=== PATIENT | female | born 1955 | race Caucasian/White ===

== ENCOUNTER → 2019-03-02 | Outpatient (CLI) | payer OTHER ==
[~2019-03-02] VITALS: Ht 165.1 cm; Wt 92.1 kg
[~2019-03-02] MED LIST: ASPIRIN325 PO; AZATHIOPRINE50 MG PO; COZAAR 25 MG TA25 M1 PO; DILTIAZEM ER180 M2 PO; FISH OIL 1,001000 M2 PO; FLECAINIDE ACET50 M2 PO; LIPITOR40 MG PO; LOSARTAN-HCTZ1 EAC3 PO; SAVAYSA60 MG PO
[2019-03-02 07:02] VITALS: BP 147/86
--- NOTE | 2019-03-02 08:43 | TEE ---
[facility] [address] [place] [address] TRANSESOPHAGEAL ECHOCARDIOGRAM Name: JAMES PERSAUD Room #: REG CL Barney#: [id number] Admission: 03/02/19 Attend Phys: Kun Mason, Discharge: Date of : 53 Report #: [id number] THIS REPORT FOR: //name// APPROVED REPORT Study performed: 03/02/2019 07:40:53 EXAM: Comprehensive GORDON, Doppler, and color-flow Echocardiogram with cardioversion Patient Location: Out-Patient Room #: 9 Status: routine BSA: 1.99 HR: 96 bpm BP: 157/78 mmHg Rhythm: Atrial Fibrillation Other Information Study Quality: Excellent Indications Atrial Fibrillation Echo Enhancing Agent Indication: Rule out Shunt Agent(s) / Amount(s) Used: Agitated Saline 7 cc Procedure After obtaining informed consent, patient underwent transesophageal echo in the [facility]. Type of Sedation : Conscious Sedation Sedation was administered by Nurse. Sedation was achieved intravenously with: Versed (4 mg) Fentanyl (150 mcg) Transesophageal probe was inserted and advanced into esophagus without difficulty by Kun Mason MD. Echo enhancement indication: R/O Septal defect. Echo enhancement agent administered: Agitated Saline The GORDON was performed without complications. Synchronized Cardioversion acheived with 120 Joules after 1 attempt(s). Rhythm following Synchronized Cardioversion: Normal Sinus Rhythm Throughout the procedure, the blood pressure, pulse oximetry, cardiac rhythm, and rate were monitored. The patient tolerated the procedure without adverse effects. Recovery [facility] [address] [place] [address] TRANSESOPHAGEAL ECHOCARDIOGRAM Name: JAMES PERSAUD Room #: REG Des.#: [id number] Admission: 03/02/19 Attend Phys: Kun Mason, Discharge: Date of : 53 Report #: [id number] from conscious sedation was uneventful and vital signs were stable. Left Ventricle The left ventricle is normal size. There is normal LV segmental wall motion. There is normal left ventricular wall thickness. The left ventricular systolic function is normal. The left ventricular ejection fraction is within the normal range. LVEF is 55-60%. Right Ventricle The right ventricle is normal size. The right ventricular systolic function is normal. Atria Left atrium is dilated. No thrombus is visualized in the left atrium or appendage. No shunting by contrast bubble injection The right atrium size is normal. Aortic Valve The aortic valve is normal in structure. No aortic regurgitation is present. There is no aortic valvular stenosis. Mitral Valve The mitral valve is normal in structure. Mild mitral regurgitation. No evidence of mitral valve stenosis. Tricuspid Valve The tricuspid valve is normal in structure. Trace tricuspid regurgitation. Pulmonic Valve The pulmonary valve is normal in structure. There is no pulmonic valvular regurgitation. Great Vessels The aortic root is normal in size. The ascending aorta is normal in size. IVC is normal in size and collapses >50% with inspiration. Pericardium There is no pericardial effusion. <Conclusion> The left ventricular systolic function is normal. There is normal LV segmental wall motion. LVEF is 55-60%. [facility] [address] [place] [address] TRANSESOPHAGEAL ECHOCARDIOGRAM Name: JAMES PERSAUD Room #: REG CAMERON QuezadaLeslieKarmenLeslie#: [id number] Admission: 03/02/19 Attend Phys: Kun Mason, Discharge: Date of : 53 Report #: [id number] Left atrium is dilated. No thrombus is visualized in the left atrium or appendage. No shunting by contrast bubble injection The aortic valve is normal in structure. No aortic regurgitation or stenosis. The mitral valve is normal in structure. Mild mitral regurgitation. There is no pericardial effusion. Successful cardioversion of atrial fibrillation to sinus rhythm with a single 120 J biphasic synchronous shock <ELECTRONICALLY SIGNED> By: Kun Mason MD, FACC 03/02/1943 1 1 Kun Mason MD, FACC /INF
--- NOTE | 2019-03-03 09:09 | EKG ---
[place] [address] [facility] [place] [address] ELECTROCARDIOGRAM REPORT Name: JAMES PERSAUD [facility] [id number] Admission: 03/02/19 Attend Phys: Kun Mason MD, Discharge: Date of : 53 Report #: [id number] THIS REPORT FOR: //name// [facility] Test Date: 2019-03-02 Test Time: 08:33:15 Pat Name: JAMES PERSAUD Department: Room: Gender: F Building Supplies Salesperson Retail: Tea JAY : 1955 Requested By: Kun Mason Order Number: [id number] MD: Kun Mason Measurements Intervals [place] Rate: 59 P: 31 CO: 223 QRS: 4 QRSD: 114 T: -7 QT: 480 QTc: 476 Interpretive Statements Sinus rhythm Prolonged CO interval Abnormal R-wave progression, early transition Nonspecific ST and T wave abnormality Compared to ECG 12/12/2014 08:03:37 First degree AV block now present Electronically Signed On 03-03-2019 9:09:12 CDT by Kun Mason [email or web address] <ELECTRONICALLY SIGNED> By: Kun Mason MD, [facility] 03/03/19 0909 0833 Kun Mason MD, [facility] /EPI
== END | disposition home or self-care (01) ==
LOC: CV 06:29 → CATH 11:06 → CV 16:52
DX: I48.91 Unspecified atrial fibrillation (principal); I34.0 Nonrheumatic mitral (valve) insufficiency; I10 Essential (primary) hypertension; E78.5 Hyperlipidemia, unspecified; F32.9 Major depressive disorder, single episode, unspecified; E66.09 Other obesity due to excess calories; Z82.49 Family history of ischemic heart disease and other diseases of the circulatory system; Z79.899 Other long term (current) drug therapy; Z79.01 Long term (current) use of anticoagulants; Z98.890 Other specified postprocedural states

== ENCOUNTER → 2019-04-07 | Outpatient (CLI) | payer OTHER ==
[~2019-04-07] MED LIST changes: +AUGMENTIN 875-1 EACH PO; +CARDIZEM CD240 M1 PO; +METOPROLOL SUCC25 M1 PO; +PRADAXA150 MG PO
[2019-04-07 08:20] LABS: HEMOGLOBIN 13.2 gm/dL (12.0-15.0); MCH 31.4 pg (26.0-34.0); MCHC 32.9 g/dL (28.0-37.0); MCV 95.3 fL (80.0-100.0); RBC 4.2 mil/uL (4.20-5.00); RDW 14.7 % (10.5-14.5); WBC 5.3 thou/uL (4.0-11.0)
[2019-04-07 09:05] LABS: ALBUMIN 3.8 g/dL (3.4-5.0); CALCIUM 9.9 mg/dL (8.5-10.1); CREATININE 1.1 mg/dL (0.6-1.0); POTASSIUM 3.8 mmol/L (3.5-5.1); TOTAL BILIRUBIN 0.9 mg/dL (<0.1-1.0); TOTAL PROTEIN 7.1 g/dL (6.4-8.2)
== END ==
LOC: CAT 07:45
PROVIDERS: Internal Medicine Cardiovascular Disease
DX: I48.91 Unspecified atrial fibrillation (principal); I25.10 Atherosclerotic heart disease of native coronary artery without angina pectoris; J98.4 Other disorders of lung; M47.819 Spondylosis without myelopathy or radiculopathy, site unspecified

== ENCOUNTER 2019-04-11 06:40 | Observation (INO) | payer OTHER ==
[~2019-04-11] VITALS: Ht 162.6 cm; Wt 93.1 kg
[~2019-04-11 06:40] MED LIST changes: -AUGMENTIN 875-1 EACH PO; -CARDIZEM CD240 M1 PO; -METOPROLOL SUCC25 M1 PO; -PRADAXA150 MG PO
[2019-04-11 07:19] VITALS: BP 167/65
[2019-04-11 07:21] LABS: ABSOLUTE NEUTROPHILS 4.3 thou/uL (1.4-8.2); BASOPHILS 1.4 % (0.0-2.0); HEMATOCRIT 42.4 % (37.0-47.0); LYMPHOCYTES 23.3 % (24.0-44.0); MCH 31.6 pg (26.0-34.0); MCHC 33.1 g/dL (28.0-37.0); MCV 95.4 fL (80.0-100.0); MONOCYTES 8.1 % (1.0-8.0); PLATELET COUNT 355 thou/uL (150-400); POLYS 65.2 % (36.0-66.0); RBC 4.44 mil/uL (4.20-5.00); RDW 15.2 % (10.5-14.5); WBC 6.5 thou/uL (4.0-11.0)
[2019-04-11 07:28] LABS: INR 1.5; PROTIME 15.3 Seconds (9.3-11.4)
[2019-04-11 07:29] LABS: CALCIUM 9.7 mg/dL (8.5-10.1); CREATININE 1.3 mg/dL (0.6-1.0); POTASSIUM 3.7 mmol/L (3.5-5.1)
[2019-04-11 07:35] LABS: ALBUMIN 4.2 g/dL (3.4-5.0); TOTAL BILIRUBIN 0.9 mg/dL (<0.1-1.0); TOTAL PROTEIN 8.1 g/dL (6.4-8.2)
[2019-04-11] MEDS ORDERED: PRADAXA150 MG PO (07:37)
--- NOTE | 2019-04-11 16:59 | NUR ---
PT GIVEN 150 MG FLECINIDE PO PER ORDER. UNABLE TO SCAN AND DOCUMENT MEDICATION IN JUL. PT RESTING COMFORTABLY. AAOX4, SPEAKING IN COMPLETE SENTENCE, REMAINS ON BEDREST, SKIN PWD, NO NAD NOTED. AFIB. VSS. UPDATED ON POC. FAMILY AT BEDSIDE. WILL CONTINUE TO MONITOR
--- NOTE | 2019-04-11 18:40 | NUR ---
ASSUMED CARE PT AT APPROX 1800 FROM CATH FROM ABLATION ACCOMPANIED BY SPOUSE. PT ALERT AND ORIENTED, VSS, DENIES PAIN. O2 SATS WNL ON ROOM AIR. RIGHT GROIN SITE CDI, NO HEMATOMA. PT ON BEDREST UNTIL APPROX 1900. HEIN CATH IN PLACE DRAINING APPROPRIATELY. ADMISSION COMPLETE TELEMETRY SHEET SIGNED. TELE PUT ON, SHEET PRINTED AND DOCUMENTED. PT CURRENTLY IN ROOM WITH SPOUSE EATING DINNER DENYING NEEDS/CONCERNS AT THIS TIME. PT PLAN IS FOR POSSIBLE CARDIOVERSION TOMORROW, PT NPO AT MIDNIGHT. WILL CONTINUE TO MONITOR AND FOLLOW POC.
[2019-04-11 18:44] VITALS: BP 135/61
[2019-04-11 20:15] VITALS: BP 104/45
[2019-04-11 23:57] VITALS: BP 125/55
[2019-04-12 04:19] VITALS: BP 99/42
[2019-04-12 05:54] LABS: INR 1.4; PROTIME 14.9 Seconds (9.3-11.4)
--- NOTE | 2019-04-12 06:24 | NUR ---
PT A&O X4 ABLE TO MAKE NEEDS KNOWN. C/O STERNAL PAIN X1 OVERNITE EFFECTIVELY CONTROLLED VIA PRN PAIN MEDS. UP AD RENEA. PT HAD AFIB ABLATION PREVIOUS SHIFT VIA L GROIN SITE INTACT NO EVIDENCE OF BLEEBING. HEIN CATHETER DCD AT HS PT VOIDING OK SINCE THEN. SOFT BP THIS AM. PT HAS BEEN NPO SINCE MIDNITE.
[2019-04-12 08:00] VITALS: BP 101/43
[2019-04-12] MEDS ORDERED: METOPROLOL SUCC25 M1 PO (08:38)
--- NOTE | 2019-04-12 08:47 | EKG ---
[address] [address] ELECTROCARDIOGRAM REPORT Name: JAMES PERSAUD Room #: 216-[facility]..#: [id number] Admission: 04/11/19 Attend Phys: Can Bello MD Discharge: Date of : 53 Report #: [id number] THIS REPORT FOR: //name// [facility] Test Date: 2019-04-12 Test Time: 07:36:40 Pat Name: JAMES PERSAUD Department: Room: 216 Gender: F Defensive Fire Control Systems Operator: SHAINA : 1955 Requested By: Can Bello Order Number: [id number] MD: Kun Mason Measurements Intervals [place] Rate: 95 P: 49 WV: 67 QRS: 42 QRSD: 174 T: 6 QT: 444 QTc: 559 Interpretive Statements Sinus rhythm Atrial premature complexes Early R-wave progression Compared to ECG 03/02/2019 08:33:15 Atrial premature complexes are now present Electronically Signed On 04-12-2019 8:47:39 NEEDLE LEADER by Kun Mason [email or web address] <ELECTRONICALLY SIGNED> By: Kun Mason MD, FAC 04/12/19 0847 0736 0736 Kun Mason MD, [facility] /EPI
[2019-04-12 09:36] VITALS: BP 101/43
--- NOTE | 2019-04-12 17:09 | EKG ---
[address] [place] [address] ELECTROCARDIOGRAM REPORT Name: JAMES PERSAUD Room #: 216-[facility] M.R.#: [id number] Admission: 04/11/19 Attend Phys: Can Bello MD Discharge: 04/12/19 Date of : 53 Report #: [id number] THIS REPORT FOR: //name// [facility] Test Date: 2019-04-12 Test Time: 09:35:19 Pat Name: JAMES PERSAUD Department: Room: [facility] Gender: F Manager News: Tea JAY : 1955 Requested By: Zainab Wright Order Number: [id number] MD: Kun Mason Measurements Intervals [place] Rate: 92 P: 69 SC: 239 QRS: -25 QRSD: 130 T: 86 QT: 396 QTc: 490 Interpretive Statements Sinus rhythm Frequent supraventricular complexes Prolonged SC interval Early R-wave progression Nonspecific T wave abnormality Compared to ECG 04/12/2019 07:36:40 No significant change was found Electronically Signed On 04-12-2019 17:09:09 RIM TECHNICIAN by Kun Mason [email or web address] <ELECTRONICALLY SIGNED> By: Kun Mason MD, [facility] 04/12/19 1709 0935 0935 Kun Mason MD, [facility] /EPI
--- NOTE | 2019-04-18 14:09 | P ---
[facility] [place] [address] PROCEDURE REPORT Name: JAMES PERSAUD Room #: 216-P [facility] MBarbie#: [id number] Admission: 04/11/19 Attend Phys: Can Bello MD Discharge: 04/12/19 Date of : 53 Report #: [id number] THIS REPORT FOR: //name// CC: Can Maharaj DATE OF SERVICE: 04/11/2019 PREOPERATIVE DIAGNOSIS: Atrial fibrillation. POSTOPERATIVE DIAGNOSIS: Atrial fibrillation. HISTORY: The patient is a 64-year-old with history of atrial fibrillation as well as dermatomyositis, who has had recurrent AFib despite antiarrhythmic drug therapy. She is here for ablation. ANESTHESIA: The patient underwent general anesthesia with no anesthesia related complications. PROCEDURES PERFORMED: 1. Atrial fibrillation ablation, CPT code 71824. 2. 3D mapping, CPT code 64485. 3. Intracardiac echo, CPT code 91000. 4. Focal ablation with creation of a posterior wall isolation, CPT code 69854. DESCRIPTION OF PROCEDURE: The patient underwent informed consent. We discussed the details of the procedure including the risks, which include but not limited to bleeding, vascular damage, cardiac perforation as well as stroke or OH. She understood these risks and is willing to proceed. The patient was brought to EP laboratory in fasting and sedated state, prepped and draped in sterile fashion. I obtained access to the right femoral vein x 3, placing an 8, 9 and 7-Azeri short sheath using the modified Seldinger technique. Next, under fluoroscopy, a decapolar catheter was placed into the right atrium. Of note, she did have a very strange anatomy. Getting my decapolar catheter into the atrium was somewhat challenging. I also had difficulties getting my ICE catheter into the right atrium as well as my guidewire for transseptal into the SVC. After spending about 10-15 minutes, I was able to advance my decapolar catheter up into the SVC and then I could get my ICE catheter into a better position and then advance my guidewire into the SVC as well. Next, using intracardiac ultrasound, I created a detailed 3D geometry of the left atrium. Of note, her anatomy was quite rotated. She appeared to have a left common ostium with the left superior and left inferior pulmonary branch. She also had a right superior and right inferior pulmonary vein. She had a large left atrial appendage. Her ultrasound images were merged with the cardiac CT scan and then the patient was systemically heparinized and a [address] [address] PROCEDURE REPORT Name: JAMES PERSAUD Room #: [address] [place] [address] M.R.#: [id number] Admission: 04/11/19 Attend Phys: Can Bello MD Discharge: 04/12/19 Date of : 53 Report #: [id number] transseptal was performed using an SL1 sheath and a Grubbs needle. Of note, at baseline, the patient was in atrial fibrillation with controlled ventricular response. A transseptal was performed using an SL1 sheath and a Grubbs needle and I was able to get my guidewire up into the left superior pulmonary vein. I attempted to advance my SL1 sheath in the left atrium, I could not. I therefore exchanged for the cryo sheath and I could not advance this in the left atrium, either. Therefore, we went back to the SL1 sheath and I used a Powerflex balloon to perform a septoplasty. Balloon was 6 mm x 4 cm. Once we performed the balloon septoplasty, I was able to advance my cryo sheath into the left atrium with ease. Next, via the cryo sheath, I placed a Lasso catheter into the left atrium and created a voltage map of the left atrium. Next, I exchanged for the cryo-balloon and placed this into the left atrium as well. The patient's anatomy was somewhat challenging and it was hard to tell on intracardiac ultrasound, if I was in the left superior or the left inferior pulmonary vein. I finally was able to get into the left superior pulmonary vein and performed two 4-minute freezes and it appeared that the vein had isolated. I then turned my attention to the left inferior pulmonary vein and performed two 4-minute freezes. This vein isolated within 114 seconds of the second freeze. It appeared that with isolation of the left superior pulmonary vein. I had likely isolated most of the left inferior pulmonary vein as they appeared to share common ostium. I then turned my attention to the right superior pulmonary vein. I performed 125 second freeze followed by 130 second freeze. The vein isolated during the first freeze within 14 seconds and I came off early on both freezes of the temperatures were -50 degrees. I then turned my attention to the right inferior pulmonary vein. This vein isolated during the first freeze within 21 seconds. I came off after 90 seconds as there was weakening of the phrenic nerve. We monitored the phrenic nerve and at the end of the case, it had returned to normal function. Posterior wall isolation. Next, using the cryoablation balloon, we performed posterior wall isolation as well. I performed 3 freezes anchored from the left superior pulmonary vein and 3 freezes anchored from the left inferior pulmonary vein. At this point, we had the patient undergo a 200 joule synchronized cardioversion and a voltage map was created. There was wide circumferential ablation of all four pulmonary veins. The posterior wall also appeared isolated as well. Post-ablation, we recheck the phrenic and this appeared to be returning to normal. As such, the procedure was concluded. Of note, the patient did have a very high ACT level. We did not check a preprocedural ACT level, but at baseline, she did have a PTT that was 15 and INR that was 1.5. The initial ACT level was over 700. We recheck this several times and this was not inaccurate. Post-ablation, we did give systemic protamine and after receiving protamine, the ACT was 240. We gave additional protamine and after an hour waiting it was still high at 224. We had pulled catheters and sheaths and I performed a cwobwu-be-uraox suture at the right groin region and there was no significant bleeding post-ablation. Given her known autoimmune disease, it is possible that she has some sort of abnormal PTT and ACT levels at baseline. [facility] [address] [place] [address] PROCEDURE REPORT Name: JAMES PERSAUD Room #: 216-P [facility] Dee M.R.#: [id number] Admission: 04/11/19 Attend Phys: Can Bello MD Discharge: 04/12/19 Date of : 53 Report #: [id number] After we had pulled lines, the patient had gone back into AFib and we performed a second 200 joule cardioversion with roman catholic of sinus rhythm. CONCLUSIONS: 1. Successful AFib ablation with wide circumferential ablation of the pulmonary veins. 2. Successful posterior wall isolation. <ELECTRONICALLY SIGNED> By: Can Bello MD 04/18/19 1409 1407 2133 Can Bello MD /nt
== END 2019-04-12 12:07 | disposition home or self-care (01) ==
LOC: CATH 06:40 → 2N 16:59 → ENTRNSPT 04-12 11:20 → EDTRNSPTSTS 04-12 11:23 → 2N 04-12 12:07
PROVIDERS: ADMIT Internal Medicine Cardiovascular Disease
DX: I48.0 Paroxysmal atrial fibrillation (principal); I10 Essential (primary) hypertension; E78.5 Hyperlipidemia, unspecified; I48.3 Typical atrial flutter; M33.90 Dermatopolymyositis, unspecified, organ involvement unspecified; I25.10 Atherosclerotic heart disease of native coronary artery without angina pectoris; Z79.01 Long term (current) use of anticoagulants; Z79.899 Other long term (current) drug therapy
CPT/HCPCS: 62110; 62900; 65020; 65040; 70005

== ENCOUNTER 2019-04-17 12:17 | Emergency (ER) | payer OTHER ==
[~2019-04-17] VITALS: Ht 162.6 cm; Wt 90.7 kg
[~2019-04-17 12:17] MED LIST changes: +METOPROLOL SUCC25 M1 PO; +PRADAXA150 MG PO
--- NOTE | 2019-04-17 13:01 | EKG ---
[place] [address] [facility] [place] [address] ELECTROCARDIOGRAM REPORT Name: JAMES PERSAUD Room #: [facility] M.R.#: [id number] Admission: Attend Phys: Discharge: Date of : 53 Report #: [id number] THIS REPORT FOR: //name// [facility] ED Test Date: 2019-04-17 Test Time: 12:24:39 Pat Name: JAMES PERSAUD Department: Room: Gender: F Pre Parole Counseling Aide: RD : 1955 Requested By: Kaz Galaviz Order Number: [id number] MD: Kun Mason Measurements Intervals [place] Rate: 140 P: [place]: QRS: 72 QRSD: 71 T: 112 QT: 309 QTc: 472 Interpretive Statements Atrial fibrillation Poor R wave progression Nonspecific ST and T wave abnormality Compared to ECG 04/12/2019 09:35:19 Atrial fibrillation has replaced sinus rhythm Electronically Signed On 04-17-2019 13:01:16 VICTIM WITNESS ADMINISTRATOR by Kun Mason [email or web address] <ELECTRONICALLY SIGNED> By: Kun Mason MD, [facility] 04/17/19 1301 1224 1224 Kun Mason MD, FACC /EPI
[2019-04-17 13:45] LABS: ABSOLUTE NEUTROPHILS 5.5 thou/uL (1.4-8.2); BASOPHILS 0.7 % (0.0-2.0); EOSINOPHILS 1.5 % (0.0-3.0); HEMOGLOBIN 11.1 gm/dL (12.0-15.0); LYMPHOCYTES 7.7 % (24.0-44.0); MCHC 33.8 g/dL (28.0-37.0); MCV 94.8 fL (80.0-100.0); MONOCYTES 8.7 % (1.0-8.0); PLATELET COUNT 261 thou/uL (150-400); POLYS 81.4 % (36.0-66.0); RBC 3.48 mil/uL (4.20-5.00); RDW 14.9 % (10.5-14.5); WBC 6.7 thou/uL (4.0-11.0)
[2019-04-17 13:54] LABS: CALCIUM 9.3 mg/dL (8.5-10.1); POTASSIUM 3.8 mmol/L (3.5-5.1)
[2019-04-17 14:02] LABS: TROPONIN-I 0.31 ng/mL (<0.06)
[2019-04-17] MEDS ORDERED: CARDIZEM CD240 M1 PO (15:26)
[2019-04-17] MEDS ORDERED: AUGMENTIN 875-1 EACH PO (15:26)
[2019-04-17 17:39] VITALS: BP 123/51
== END 2019-04-17 17:40 | disposition home or self-care (01) ==
LOC: ER 12:17
PROVIDERS: Emergency Medicine
DX: I48.20 Chronic atrial fibrillation, unspecified (principal); E78.5 Hyperlipidemia, unspecified; I10 Essential (primary) hypertension; Z79.899 Other long term (current) drug therapy

== ENCOUNTER 2019-04-19 07:29 | Inpatient (IN) | payer OTHER ==
[~2019-04-19] VITALS: Ht 162.6 cm; Wt 94.3 kg
[~2019-04-19 07:29] MED LIST changes: +AUGMENTIN 875-1 EACH PO; +CARDIZEM CD240 M1 PO
[2019-04-19 07:30] VITALS: BP 130/70
[2019-04-19 08:00] LABS: ABSOLUTE NEUTROPHILS 5.8 thou/uL (1.4-8.2); BASOPHILS 0.5 % (0.0-2.0); EOSINOPHILS 0.9 % (0.0-3.0); HEMATOCRIT 33.5 % (37.0-47.0); HEMOGLOBIN 11.2 gm/dL (12.0-15.0); LYMPHOCYTES 12.6 % (24.0-44.0); MCH 31.8 pg (26.0-34.0); MCHC 33.4 g/dL (28.0-37.0); MCV 95.4 fL (80.0-100.0); MONOCYTES 11.3 % (1.0-8.0); PLATELET COUNT 285 thou/uL (150-400); POLYS 74.7 % (36.0-66.0); RBC 3.51 mil/uL (4.20-5.00); RDW 15.4 % (10.5-14.5); WBC 7.8 thou/uL (4.0-11.0)
[2019-04-19 08:07] LABS: CALCIUM 9.5 mg/dL (8.5-10.1); POTASSIUM 3.5 mmol/L (3.5-5.1)
[2019-04-19 08:15] LABS: TROPONIN-I 0.14 ng/mL (<0.06)
--- NOTE | 2019-04-19 08:38 | EKG ---
[address] [place] [address] ELECTROCARDIOGRAM REPORT Name: JAMES PERSAUD [id number] Admission: 04/19/19 Attend Phys: Discharge: Date of : 53 Report #: [id number] THIS REPORT FOR: //name// [facility] ED Test Date: 2019-04-19 Test Time: 07:34:49 Pat Name: JAMES PERSAUD Department: Room: Gender: F Special Officer Automat: ANNE : 1955 Requested By: Tima Camarena Order Number: [id number] MD: Can Bello Measurements Intervals [place] Rate: 118 P: [place]: QRS: 50 QRSD: 110 T: -41 QT: 331 QTc: 464 Interpretive Statements Atrial flutter Low voltage, precordial leads Borderline repolarization abnormality Baseline wander in lead(s) I,III,aVL Compared to ECG 04/17/2019 12:24:39 Electronically Signed On 04-19-2019 8:38:34 FLEXOGRAPHIC PRESS OPERATOR by Can Bello [email or web address] <ELECTRONICALLY SIGNED> By: Can Bello MD 04/19/19 0838 3 3 Can Bello MD /STEPHANIE
[2019-04-19 08:53] VITALS: BP 150/60
[2019-04-19 10:09] VITALS: BP 102/53
[2019-04-19 10:22] VITALS: BP 106/68
--- NOTE | 2019-04-19 11:32 | 2DMMODE ---
[address] [address] D/M-MODE ECHOCARDIOGRAM Name: JAMES PERSAUD Room #: 217-P ADM IN M.R.#: [id number] Admission: 04/19/19 Attend Phys: Juan Ramon Villanueva Discharge: Date of : 53 Report #: [id number] THIS REPORT FOR: //name// APPROVED REPORT Study performed: 04/19/2019 10:56:41 EXAM: Limited 2D Echocardiogram Patient Location: Bedside Room #: [facility] Status: routine BSA: 1.96 HR: 82 bpm BP: 92/57 mmHg Rhythm: Atrial Fibrillation Other Information Study Quality: Adequate Indications Limited follow up echo to rule out pericardial effusion. Chest pain. Status post Afib ablation 04/11/19. Left Ventricle The left ventricle is normal size. There is normal left ventricular wall thickness. Left ventricular systolic function is normal. LVEF is 55%. Right Ventricle The right ventricle is normal size. The right ventricular systolic function is normal. Atria Left atrium is dilated. The right atrium size is normal. Aortic Valve The aortic valve is normal in structure. Mitral Valve The mitral valve is normal in structure. Tricuspid Valve The tricuspid valve is normal in structure. Pericardium There is no pericardial effusion. [address] [address] D/M-MODE ECHOCARDIOGRAM Name: JAMES PERSAUD Room #: 217-P ADM IN M.R.#: [id number] Admission: 04/19/19 Attend Phys: Juan Ramon Villanueva Discharge: Date of : 53 Report #: [id number] <Conclusion> The left ventricle is normal size. LVEF is 55%. Left atrium is dilated. The aortic valve is normal in structure. The mitral valve is normal in structure. The tricuspid valve is normal in structure. There is no pericardial effusion. <ELECTRONICALLY SIGNED> By: Andrew Ramey MD 04/19/19 1132 1132 31 Andrew Ramey MD /INF
[2019-04-19 17:08] VITALS: BP 155/94
--- NOTE | 2019-04-19 19:08 | NUR ---
ASSUMED CARE 1100. ADMISSION FOR ED FOR ELEVATED TROPONIN AND CHEST PAIN. PAIN MANAGED WITH MEDICATIONS. STEADY WALK WITH BATHROOM PRIVLEDGES. ENCOURAGED KEEPING BED ELEVATED FOR PAIN RELIEF. CALLS APPROPRIATLEY. NPO FOR CARDIOVERSION IN THE MORNING.
[2019-04-19 19:53] VITALS: BP 110/63
[2019-04-20 04:06] VITALS: BP 153/94
[2019-04-20 05:37] LABS: CALCIUM 9.2 mg/dL (8.5-10.1); CREATININE 1.3 mg/dL (0.6-1.0); POTASSIUM 3.9 mmol/L (3.5-5.1)
[2019-04-20 05:46] LABS: ABSOLUTE NEUTROPHILS 9.2 thou/uL (1.4-8.2); BASOPHILS 0.2 % (0.0-2.0); HEMATOCRIT 32.4 % (37.0-47.0); HEMOGLOBIN 10.9 gm/dL (12.0-15.0); LYMPHOCYTES 4.1 % (24.0-44.0); MCH 31.9 pg (26.0-34.0); MCHC 33.6 g/dL (28.0-37.0); MCV 94.7 fL (80.0-100.0); MONOCYTES 3.1 % (1.0-8.0); PLATELET COUNT 286 thou/uL (150-400); POLYS 92.6 % (36.0-66.0); RBC 3.42 mil/uL (4.20-5.00); RDW 15.6 % (10.5-14.5)
--- NOTE | 2019-04-20 08:27 | NUR ---
PATIETNS CARES WERE ASSUMED AT SHIFT CHANGE. PATIENT WAS ASSESSED AND MEDS WERE PASSED. SLEEPING PILL WAS GIVEN AND PATIENT SLEPT ALL NIGHT, HOURLY ROUNDS WERE DONE. THE BED IS IN A LOW AND LOCKED POSITION.
[2019-04-20 08:30] VITALS: BP 135/76
[2019-04-20 11:00] VITALS: BP 127/75
[2019-04-20 17:30] VITALS: BP 153/76
--- NOTE | 2019-04-20 17:33 | NUR ---
ASSUMED CARE 0700. ALERT X4, DENIES PAIN, VS WNL. AFIB ON TELE, CONSCENT SIGNED FOR MORNING CARDIOVERSION. UNDERSTANDS SHE WILL BE NPO AFTER MIDNIGHT TONIGHT. STEADY GAIT, UP AB RENEA IN ROOM. CALLS FOR ASSISTANCE.
[2019-04-20 19:20] VITALS: BP 146/90
[2019-04-21 04:36] VITALS: BP 138/68
[2019-04-21 05:12] LABS: CALCIUM 8.9 mg/dL (8.5-10.1); CREATININE 1.1 mg/dL (0.6-1.0); POTASSIUM 3.9 mmol/L (3.5-5.1)
[2019-04-21 05:19] LABS: ALBUMIN 2.6 g/dL (3.4-5.0); TOTAL BILIRUBIN 0.3 mg/dL (<0.1-1.0); TOTAL PROTEIN 7.1 g/dL (6.4-8.2)
[2019-04-21 12:00] VITALS: BP 125/77
[2019-04-21] MEDS ORDERED: METOPROLOL SUCC25 M1 PO (13:13)
[2019-04-21 13:46] VITALS: BP 125/77
--- NOTE | 2019-04-21 15:09 | NUR ---
ASSUMED CARE PT SHIFT CHANGE. ASSESSMENT CHARTED. MEDS GIVEN PER JUL. PT ALERT AND ORIENTED, VSS. O2 SATS WNL ON ROOM AIR. NO C/O CHEST PAIN, SOB. PT TO HAVE CARDIOVERSION- PT AWARE OF PROCEDURE. PT SR ON MONITOR WITH PAC'S UPON RETURN FROM CARDIOVERSION. DC ORDERS ACKNOWLEDGED AND IMPLEMENTED. DC PAPERWORK DISCUSSED WITH PT. COMMUNICATES UNDERSTANDING. IV REMOVED. TELE REMOVED. PT LEFT UNIT AT APPROX 1505 WITH ALL BELONGINGS.
[2019-04-22 00:09] LABS: GLYCOHEMOGLOBIN (HGB A1C) 6.9 % (4.8-5.6)
--- NOTE | 2019-04-22 09:38 | EKG ---
[address] [employer]asi[employer] [place] [address] ELECTROCARDIOGRAM REPORT Name: JAMES PERSAUD Room #: 217-P DIS IN M.R.#: [id number] Admission: 04/19/19 Attend Phys: Juan Ramon Snyder Discharge: 04/21/19 Date of : 53 Report #: [id number] THIS REPORT FOR: //name// [facility] Test Date: 2019-04-21 Test Time: 11:39:35 Pat Name: JAMES PERSAUD Department: Room: 217 Gender: F Quality Control Engineer: Tea JAY : 1955 Requested By: Can Bello Order Number: [id number] MD: Kun Mason Measurements Intervals [place] Rate: 103 P: 29 FL: 198 QRS: 16 QRSD: 119 T: 18 QT: 422 QTc: 553 Interpretive Statements Sinus tachycardia Frequent supraventricular complexes Nonspecific ST and T wave abnormality Compared to ECG 04/19/2019 07:34:49 Sinus rhythm has replaced atrial flutter Electronically Signed On 04-22-2019 9:38:36 CRA OFFICER by Kun Mason [email or web address] <ELECTRONICALLY SIGNED> By: Kun Mason MD, FACC 04/22/19 0938 1139 1139 Kun Mason MD, [facility] /EPI
--- NOTE | 2019-04-28 13:40 | P ---
[facility] [place] [address] PROCEDURE REPORT Name: JAMES PERSAUD Room #: 217-P [facility] IN M.R.#: [id number] Admission: 04/19/19 Attend Phys: Juan Ramon Snyder Discharge: 04/21/19 Date of : 53 Report #: [id number] THIS REPORT FOR: //name// CC: FAM unknown Juan Ramon Snyder PREOPERATIVE DIAGNOSIS: Atrial fibrillation. POSTOPERATIVE DIAGNOSIS: Atrial fibrillation. PROCEDURES PERFORMED: Cardioversion. DESCRIPTION OF PROCEDURE: The patient underwent informed consent. The patient was prepped in a standard fashion. The patient was sedated by the Anesthesiology service. Once sedated, she underwent a synchronized 200 joule cardioversion with evangelical of sinus rhythm. There were no procedure related complications. CONCLUSIONS: Successful DC cardioversion with evangelical of sinus rhythm. <ELECTRONICALLY SIGNED> By: Can Bello MD 04/28/19 1340 1140 7141 Can Bello MD /nt
--- NOTE | 2019-04-28 13:41 | P ---
[facility] [address] PROCEDURE REPORT Name: JAMES PERSAUD Room #: 217-P [facility] IN M.R.#: [id number] Admission: 04/19/19 Attend Phys: Juan Ramon Snyder Discharge: 04/21/19 Date of : 53 Report #: [id number] THIS REPORT FOR: //name// CC: FAM unknown Juan Ramon Snyder PREOPERATIVE DIAGNOSIS: Atrial fibrillation. POSTOPERATIVE DIAGNOSIS: Atrial fibrillation. PROCEDURES PERFORMED: Direct Current cardioversion. DESCRIPTION OF PROCEDURE: The patient underwent informed consent. The patient was sedated by the Anesthesiology service and once sedated, she underwent a single 200 joule synchronized cardioversion with yazidi of sinus rhythm. There were no procedure related complications. CONCLUSIONS: Successful DC cardioversion with yazidi of sinus rhythm. <ELECTRONICALLY SIGNED> By: Can Bello MD 04/28/19 1341 1107 220 Can Bello MD /nt
== END 2019-04-21 15:05 | disposition hospice, home (50) | DRG 314 ==
LOC: ER 07:29 → 2N 08:43 → EROBS 08:43 → 2N 10:09 → ENTRNSPT 04-21 14:58 → EDTRNSPTSTS 04-21 15:01 → 2N 04-21 15:05
PROVIDERS: Emergency Medicine; Internal Medicine Cardiovascular Disease; Nurse Practitioner; ADMIT Hospitalist
PROC: 5A2204Z Restoration of Cardiac Rhythm, Single (ICD-10-PCS; principal; 2019-04-19)
DX: I31.9 Disease of pericardium, unspecified (principal); N17.0 Acute kidney failure with tubular necrosis; I48.92 Unspecified atrial flutter; M33.93 Dermatopolymyositis, unspecified without myopathy; F32.9 Major depressive disorder, single episode, unspecified; E78.5 Hyperlipidemia, unspecified; I10 Essential (primary) hypertension; I48.0 Paroxysmal atrial fibrillation; I25.10 Atherosclerotic heart disease of native coronary artery without angina pectoris; Z82.49 Family history of ischemic heart disease and other diseases of the circulatory system; Z79.899 Other long term (current) drug therapy
CPT/HCPCS: 10081; 62110; 62900

== ENCOUNTER → 2019-05-12 | Outpatient (CLI) | payer OTHER ==
[~2019-05-12] VITALS: Ht 165.1 cm; Wt 90.7 kg
[~2019-05-12] MED LIST changes: +AMIODARONE HCL400 MG PO
[2019-05-12 11:29] VITALS: BP 110/70
--- NOTE | 2019-05-13 15:02 | EKG ---
[address] [address] ELECTROCARDIOGRAM REPORT Name: JAMES PERSAUD Room #: REG BRENDON Corley#: [id number] Admission: 05/12/19 Attend Phys: Can Bello MD Discharge: Date of : 53 Report #: [id number] THIS REPORT FOR: //name// [facility] Test Date: 2019-05-12 Test Time: 12:32:30 Pat Name: JAMES PERSAUD Department: Room: Gender: F Him Director: jesus : 1955 Requested By: Can Bello Order Number: [id number] MD: Can Bello Measurements Intervals [place] Rate: 77 P: -78 SC: 148 QRS: 6 QRSD: 122 T: QT: 390 QTc: 442 Interpretive Statements Sinus or ectopic atrial rhythm Atrial premature complexes IVCD, consider atypical RBBB Nonspecific T abnormalities, lateral leads Compared to ECG 04/21/2019 11:39:35 Electronically Signed On 05-13-2019 15:01:38 PRINTING MACHINIST by Can Bello [email or web address] <ELECTRONICALLY SIGNED> By: Can Bello MD 05/13/19 1501 1232 1232 Can Bello MD /EPI
--- NOTE | 2019-06-06 15:05 | P ---
[facility] [address] [place] [address] PROCEDURE REPORT Name: JAMES PERSAUD [facility] #: [facility] [id number] Admission: 05/12/19 Attend Phys: Can Bello MD Discharge: Date of : 53 Report #: [id number] THIS REPORT FOR: //name// CC: Can Maharaj DATE OF SERVICE: 06/03/2019 PROCEDURE: Cardioversion PREOPERATIVE DIAGNOSIS: Atrial fibrillation. POSTOPERATIVE DIAGNOSIS: Atrial fibrillation. DESCRIPTION OF PROCEDURE: The patient underwent informed consent. She was prepped in a standard fashion. The patient was sedated by the Anesthesiology service and once sedated, underwent a 200 joule synchronized cardioversion with scientology of sinus rhythm. There were no procedure related complications. CONCLUSIONS: Successful DC cardioversion with scientology of sinus rhythm. <ELECTRONICALLY SIGNED> By: Can Bello MD 06/06/19 1505 1435 2243 Can Bello MD /nt
== END | disposition home or self-care (01) ==
LOC: CATH 09:46
DX: I48.91 Unspecified atrial fibrillation (principal); I48.92 Unspecified atrial flutter; I10 Essential (primary) hypertension; E78.5 Hyperlipidemia, unspecified; F32.9 Major depressive disorder, single episode, unspecified; Z98.890 Other specified postprocedural states; Z79.01 Long term (current) use of anticoagulants; Z79.899 Other long term (current) drug therapy
CPT/HCPCS: 62110; 62900

== ENCOUNTER → 2019-07-12 | Outpatient (CLI) | payer MEDICARE | LOC: SJCVC 14:22 | DX: R94.31 Abnormal electrocardiogram [ECG] [EKG] (principal); I48.91 Unspecified atrial fibrillation ==

== ENCOUNTER → 2019-09-07 | Outpatient (CLI) | payer MEDICARE | LOC: SJCVC 12:56 | DX: I48.3 Typical atrial flutter (principal); I48.91 Unspecified atrial fibrillation; M33.90 Dermatopolymyositis, unspecified, organ involvement unspecified; I10 Essential (primary) hypertension; E78.5 Hyperlipidemia, unspecified; Z79.01 Long term (current) use of anticoagulants; Z79.899 Other long term (current) drug therapy; Z82.49 Family history of ischemic heart disease and other diseases of the circulatory system ==

== ENCOUNTER → 2020-01-24 | Outpatient (CLI) | payer OTHER | LOC: SJCVC 13:31 | PROVIDERS: ATTEND Internal Medicine Cardiovascular Disease | DX: I48.91 Unspecified atrial fibrillation (principal); R94.31 Abnormal electrocardiogram [ECG] [EKG]; I10 Essential (primary) hypertension; M33.90 Dermatopolymyositis, unspecified, organ involvement unspecified; C43.30 Malignant melanoma of unspecified part of face; Z79.899 Other long term (current) drug therapy ==

== ENCOUNTER → 2020-06-27 | Outpatient (CLI) | payer OTHER | LOC: SJCVC 11:17 | PROVIDERS: ATTEND Internal Medicine | DX: R94.31 Abnormal electrocardiogram [ECG] [EKG] (principal); I48.0 Paroxysmal atrial fibrillation; I10 Essential (primary) hypertension; E78.5 Hyperlipidemia, unspecified; M33.90 Dermatopolymyositis, unspecified, organ involvement unspecified; C43.30 Malignant melanoma of unspecified part of face; F32.9 Major depressive disorder, single episode, unspecified; Z72.89 Other problems related to lifestyle; Z79.899 Other long term (current) drug therapy ==

== ENCOUNTER → 2020-07-09 | Outpatient (CLI) | payer OTHER | LOC: SJCVCIMAG 07-03 10:46 | PROVIDERS: ATTEND Internal Medicine | DX: I08.3 Combined rheumatic disorders of mitral, aortic and tricuspid valves (principal); I48.91 Unspecified atrial fibrillation; I10 Essential (primary) hypertension; E78.5 Hyperlipidemia, unspecified; R06.09 Other forms of dyspnea; F32.9 Major depressive disorder, single episode, unspecified ==

== ENCOUNTER → 2020-07-31 | Outpatient (CLI) | payer OTHER | LOC: SJCVCIMAG 10:01 | PROVIDERS: ATTEND Internal Medicine | DX: R94.31 Abnormal electrocardiogram [ECG] [EKG] (principal); I08.1 Rheumatic disorders of both mitral and tricuspid valves; I48.91 Unspecified atrial fibrillation; I48.3 Typical atrial flutter; I10 Essential (primary) hypertension; E78.5 Hyperlipidemia, unspecified; M33.90 Dermatopolymyositis, unspecified, organ involvement unspecified; F32.9 Major depressive disorder, single episode, unspecified; Z79.899 Other long term (current) drug therapy; Z72.89 Other problems related to lifestyle ==

== ENCOUNTER → 2020-09-14 | Outpatient (CLI) | payer OTHER | LOC: SJCVC 10:19 | PROVIDERS: ATTEND Internal Medicine | DX: R94.31 Abnormal electrocardiogram [ECG] [EKG] (principal); I48.0 Paroxysmal atrial fibrillation; I10 Essential (primary) hypertension; E78.5 Hyperlipidemia, unspecified; C43.30 Malignant melanoma of unspecified part of face; M33.90 Dermatopolymyositis, unspecified, organ involvement unspecified; F32.9 Major depressive disorder, single episode, unspecified; Z82.49 Family history of ischemic heart disease and other diseases of the circulatory system; Z79.899 Other long term (current) drug therapy ==

== ENCOUNTER → 2020-12-03 | Outpatient (CLI) | payer OTHER | LOC: SJCVCIMAG 09:40 | PROVIDERS: ATTEND Internal Medicine | DX: I08.1 Rheumatic disorders of both mitral and tricuspid valves (principal); I11.9 Hypertensive heart disease without heart failure; R94.31 Abnormal electrocardiogram [ECG] [EKG]; I48.0 Paroxysmal atrial fibrillation; Z79.899 Other long term (current) drug therapy ==

== ENCOUNTER → 2021-03-19 | Outpatient (CLI) | payer OTHER | LOC: SJCVC 10:37 | PROVIDERS: ATTEND Internal Medicine | DX: R94.31 Abnormal electrocardiogram [ECG] [EKG] (principal); I48.0 Paroxysmal atrial fibrillation; I10 Essential (primary) hypertension; E78.5 Hyperlipidemia, unspecified; C43.30 Malignant melanoma of unspecified part of face; M33.90 Dermatopolymyositis, unspecified, organ involvement unspecified; F32.9 Major depressive disorder, single episode, unspecified; Z82.49 Family history of ischemic heart disease and other diseases of the circulatory system; Z95.1 Presence of aortocoronary bypass graft; Z79.899 Other long term (current) drug therapy; Z72.89 Other problems related to lifestyle ==

== ENCOUNTER → 2021-04-08 | Outpatient (CLI) | payer OTHER | LOC: SJCVCIMAG 11:34 | PROVIDERS: ATTEND Internal Medicine Cardiovascular Disease | DX: I34.0 Nonrheumatic mitral (valve) insufficiency (principal); I11.9 Hypertensive heart disease without heart failure; I48.0 Paroxysmal atrial fibrillation; C43.30 Malignant melanoma of unspecified part of face ==